=== PATIENT | male | born 1945 | race Caucasian/White ===

== ENCOUNTER 2018-12-05 01:07 | Inpatient (IN) | payer MEDICARE, OTHER ==
[~2018-12-05] VITALS: Ht 177.8 cm; Wt 122.5 kg
[~2018-12-05 01:07] MED LIST: ACET500 PO; ATOR10 PO; Aspir 8181 MG PO; CALCA500CH PO; CLOP75; CLOP75 PO; METO100ER PO; METO50; Nitrostat0.4 MG SL; OLME20-12. PO; TRIA50; TRIA80TC TOP
[2018-12-05 01:25] LABS: Calcium, Ionized (POC) 1.07 mmol/L (1.10-1.46); Chloride (POC) 105 mmol/L (98-108); Glucose (ISTAT POC) 186 mg/dL (70-99); Potassium (POC) 4.3 mmol/L (3.5-5.5); Sodium (POC) 139 mmol/L (135-148); Total CO2 (POC) 26 mmol/L (21-32)
[2018-12-05 01:47] LABS: BASOPHILS ABSOLUTE AUTO 0.05 K/mm3 (0.00-0.23); BASOPHILS PERCENT AUTO 1 % (0-2); EOSINOPHILS ABSOLUTE AUTO 0.12 K/mm3 (0.00-0.68); EOSINOPHILS PERCENT AUTO 1 % (0-6); Hematocrit 47.4 % (37.0-53.0); Hemoglobin 14.9 g/dL (13.5-17.5); IMMATURE GRAN ABSOLUTE AUTO 0.12 K/mm3 (0.00-0.10); IMMATURE GRAN PERCENT AUTO 1 % (0-1); LYMPHOCYTES ABSOLUTE AUTO 1.99 K/mm3 (0.84-5.20); LYMPHOCYTES PERCENT AUTO 19 % (21-46); MONOCYTES ABSOLUTE AUTO 0.75 K/mm3 (0.16-1.47); MONOCYTES PERCENT AUTO 7 % (4-13); Mean Corpuscular HGB 28.8 pg (26.0-34.0); Mean Corpuscular HGB Conc 31.4 g/dL (31.5-36.5); Mean Corpuscular Volume 92 fL (80-100); Mean Platelet Volume 10.4 fL (9.1-12.4); NEUTROPHILS ABSOLUTE AUTO 7.37 K/mm3 (1.96-9.15); NEUTROPHILS PERCENT AUTO 71 % (41-73); Platelet Count 278 K/mm3 (150-400); RDW Coefficient Variation 13.5 % (11.7-14.2); RDW Standard Deviation 46.1 fL (35.1-46.3); Red Blood Cell Count 5.17 M/mm3 (4.30-5.90)
[2018-12-05 01:59] LABS: Albumin, Blood 3.5 g/dL (3.4-5.0); Bilirubin, Total 0.3 mg/dL (0.1-1.0); Bun/Creatinine Ratio 16.7 (12.0-20.0); Creatinine, Blood 1.68 mg/dL (0.60-1.20); Globulin, Blood 3.6 g/dL (2.2-4.0); Magnesium, Blood 2.3 mg/dL (1.6-2.4); Potassium, Blood 4.4 mmol/L (3.5-5.5); Total Protein, Blood 7.1 g/dL (6.4-8.2); Troponin I 0.239 ng/mL (0.000-0.040)
[2018-12-05 11:20] LABS: Prothrombin Time Results 10.6 Sec (9.7-11.5)
--- NOTE | 2018-12-05 11:34 | NUR ---
ECHOCARDIOGRAM COMPLETED
[2018-12-05] MEDS ORDERED: METF500 PO (12:01)
[2018-12-05] MEDS ORDERED: ATORVASTATIN CA20 MG PO (12:02)
[2018-12-05] MEDS ORDERED: Hydrochloroth12.5 MG PO (12:02)
[2018-12-05] MEDS ORDERED: LOSA50 PO (12:38)
--- NOTE | 2018-12-05 14:51 | NUR ---
REPORT FROM MELVA SEBASTIAN. PATIENT WILL BE ADMITTED TO ICU 6 WHEN IT'S CLEAN
--- NOTE | 2018-12-05 15:31 | NUR ---
ADMITTED TO ICU 6. WALKED TO USE TOILET PRIOR TO BEING PLACED ON THE MONITOR. AMIODARONE GTT AT 1 AND HEPARIN AT 13 UNITS/KG/HR
--- NOTE | 2018-12-05 19:44 | NUR ---
PT RESTING IN BED. DENIES PAIN, N/V, SOB AND DIZZINESS. GOT UP WITH MINIMAL ASSIST TO BATHROOM WITHOUT ISSUE. NO REQUESTS AT THIS TIME. SEE ASSESSMENT.
[2018-12-06 05:09] LABS: BASOPHILS ABSOLUTE AUTO 0.03 K/mm3 (0.00-0.23); BASOPHILS PERCENT AUTO 0 % (0-2); EOSINOPHILS ABSOLUTE AUTO 0.12 K/mm3 (0.00-0.68); EOSINOPHILS PERCENT AUTO 2 % (0-6); Hematocrit 39.1 % (37.0-53.0); Hemoglobin 12.6 g/dL (13.5-17.5); IMMATURE GRAN ABSOLUTE AUTO 0.02 K/mm3 (0.00-0.10); IMMATURE GRAN PERCENT AUTO 0 % (0-1); LYMPHOCYTES ABSOLUTE AUTO 1.36 K/mm3 (0.84-5.20); LYMPHOCYTES PERCENT AUTO 17 % (21-46); MONOCYTES ABSOLUTE AUTO 0.78 K/mm3 (0.16-1.47); MONOCYTES PERCENT AUTO 10 % (4-13); Mean Corpuscular HGB Conc 32.2 g/dL (31.5-36.5); Mean Corpuscular Volume 90 fL (80-100); Mean Platelet Volume 10.4 fL (9.1-12.4); NEUTROPHILS ABSOLUTE AUTO 5.62 K/mm3 (1.96-9.15); NEUTROPHILS PERCENT AUTO 71 % (41-73); Platelet Count 192 K/mm3 (150-400); RDW Coefficient Variation 13.9 % (11.7-14.2); Red Blood Cell Count 4.34 M/mm3 (4.30-5.90); White Blood Cell Count 7.93 K/mm3 (4.00-11.30)
[2018-12-06 05:24] LABS: International Normalized Ratio 0.99; Prothrombin Time Results 10.5 Sec (9.7-11.5)
[2018-12-06 05:27] LABS: Albumin, Blood 3.2 g/dL (3.4-5.0); Anion Gap 5 mmol/L (6-16); Blood Urea Nitrogen 28 mg/dL (8-24); Bun/Creatinine Ratio 23.1 (12.0-20.0); CO2, Blood 26 mmol/L (21-32); Calcium, Blood 8.6 mg/dL (8.5-10.1); Chloride, Blood 108 mmol/L (98-108); Creatinine, Blood 1.21 mg/dL (0.60-1.20); Glomerular Filtration Rate >60 (60-); Glucose, Blood 143 mg/dL (70-99); Phosphorus, Blood 3.7 mg/dL (2.5-4.9); Potassium, Blood 4.1 mmol/L (3.5-5.5); Sodium, Blood 139 mmol/L (136-145)
[2018-12-06 05:51] LABS: Troponin I 0.717 ng/mL (0.000-0.040)
--- NOTE | 2018-12-06 06:15 | NUR ---
PT RESTING IN BED. NO COMPLAINTS OF PAIN, N/V, OR SOB. WORE HOME CPAP MOST OF THE NIGHT FOR SLEEP. NO SIGN OF DISTRESS. 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
--- NOTE | 2018-12-06 07:26 | NUR ---
ASSUMED CARE REPORT FROM MELVA SHARMA. ASLEEP WITH CPAP MASK ON. AMIODARONE GTT AT 0.5 MG/MIN. HEPARIN GTT AT 16 UNITS/KG/HR. NPO SINCE MIDNIGHT. 4 H YOUTH DEVELOPMENT SPECIALIST THIS MORNING
--- NOTE | 2018-12-06 07:51 | NUR ---
PATIENT WAKE, PERFORMING AM CARE AT SINK
--- NOTE | 2018-12-06 08:45 | NUR ---
CONSULTED DR. SWARTZ RE: TRANSITION FROM AMIODARONE GTT PRIOR TO PROCEDURE. ORDER REC'D FOR PO AMIODARONE BID.
--- NOTE | 2018-12-06 10:36 | NUR ---
ALMITA FRYE, AND JUNE CAME TO GET PATIENT FOR REAL ESTATE RECRUITER SHORTLY AFTER 0900.
--- NOTE | 2018-12-06 11:24 | NUR ---
BACK FROM MANAGER INTENSIVE CARE UNIT PT BACK FROM MANAGER INTENSIVE CARE UNIT AT 1120. TR BAND IN PLACE TO R WRIST WITH 13ML OF AIR. DISTAL HAND WARM TO TOUCH, PULSE STRONG. PT DENIES ANY NUMBNESS OR TINGLING TO HAND. VITAL SIGNS STABLE. PT DENIES ANY CHEST PAIN. IV GTT'S DISCONTINUED PER MANAGER INTENSIVE CARE UNIT STAFF. PT INSTRUCTED TO NOT USE RIGHT HAND/ARM AT THIS TIME - VERBALIZES UNDERSTANDING. WILL CONTINUE TO MONITOR PT.
[2018-12-06 12:34] LABS: Albumin, Blood 3.3 g/dL (3.4-5.0); Anion Gap 6 mmol/L (6-16); Blood Urea Nitrogen 22 mg/dL (8-24); Bun/Creatinine Ratio 19.5 (12.0-20.0); CO2, Blood 26 mmol/L (21-32); Calcium, Blood 8.6 mg/dL (8.5-10.1); Chloride, Blood 108 mmol/L (98-108); Creatinine, Blood 1.13 mg/dL (0.60-1.20); Glomerular Filtration Rate >60 (60-); Glucose, Blood 113 mg/dL (70-99); Phosphorus, Blood 3.1 mg/dL (2.5-4.9); Sodium, Blood 140 mmol/L (136-145)
--- NOTE | 2018-12-06 12:55 | NUR ---
MD VISIT DR. CARMEN IN TO TALK TO PATIENT ABOUT DEFIB IMPLANT
--- NOTE | 2018-12-06 14:23 | NUR ---
TR BAND REMOVED AND CLEAR OCCLUSIVE DRESSING APPLIED TO RIGHT RADIAL SITE. ARM BOARD IN PLACE WITH INSTRUCTIONS NOT TO USE AND TO APPLY PRESSURE IF IT BLEEDS
--- NOTE | 2018-12-06 17:05 | NUR ---
Per pt request, I met with both he and his at bedside. is very worried and tearful. Both responded well to assurance of excellent care ant attention. They were appreciative of prayer and spiritual direction. Pt having cardiac intervention this afternoon. I will remain available.
--- NOTE | 2018-12-06 19:50 | NUR ---
ASSUMED CARE RECEIEVED REPORT FROM MELVA ROMAN. PT IS LYING IN BED ALERT AND ORIENTED X 4. DENIES ANY CHEST TIGHTNESS, PAIN, SOB, OR GENERAL DISCOMFORT AT THIS TIME. PT IS SALINE LOCKED IN BOTH IV'S. VITALS ARE STABLE; PT IS HAVING FREQUENT PAC'S AND OCCASIONAL PVC'S, BUT IS ASYMPTOMATIC AT THIS MOMENT. AT BEDSIDE. BED IS LOW AND LOCKED; CALL LIGHT WITHIN REACH.
--- NOTE | 2018-12-06 19:55 | NUR ---
RIGHT RADIAL SITE IS CDI; NO SIGN OF HEMATOMA FORMATION, SITE IS SOFT, AND NONTENDER.
--- NOTE | 2018-12-07 05:52 | NUR ---
SHIFT SUMMARY PT IS ALERT AND ORIENTED X 4, PLEASANT MAN WITH NOT MUCH COMPLAINTS. HAS DENIED CP, SOB, NAUSEA AND ANY GENERAL DISCOMFORT. HE HAS SLEPT THE MAJORITY OF NIGHT. REQUIRING CPAP WHEN ASLEEP. RIGHT RADIAL SITE HAS REMAINED CDI, NO PAIN, GOOD PERFUSION (CAP REFILL < 3'S, STRONG RADIAL PULSE, WARMTH, ETC...), AND NO SIGN OF HEMATOMA FORMATION. BP HAS BEEN ELEVATED (SEE VS). PT IS HAVING FREQUENT PAC'S AND OCCASIONAL PVC'S BUT IS IN A SINUS RHYTHM WITH A CONTROLLED RATE. BED IS LOW AND LOCKED. CALL LIGHT HAS BEEN IN REACH ALL NIGHT.
--- NOTE | 2018-12-07 08:03 | NUR ---
Recieved report from Jimena FRYE. Patient sleeping when entering room and allowed him top sleep until family came in and awakened him. He is on Ra and sats in the upper 90%'s. He is able to communicate his needs. He is awaiting to go for AICD placement this am. Family at bedside. His right TR band site has small hematoma resolving and clear op site dressing with no signs of bleeding or oozing. He is hypertensive 160 sytolic, HR 70's. He is currently independent in room.
--- NOTE | 2018-12-07 10:27 | NUR ---
Patient off to procedure for AICD. and awaiting return.
--- NOTE | 2018-12-07 12:26 | NUR ---
Patient arrived back to room from heart center with left shoulder pressure dressing. Nurse stated small bleeding area toward arm pit and stated to keep an eye on it. Patient denies any need for pain intervention. TR band site C/D/I. RA. Patient tolerating fluids.
--- NOTE | 2018-12-07 14:38 | NUR ---
Patient up to bathroom with assist. Placed sling on left arm. No oozing or bvleeding visible through pressure dressing. VSS. Tolerated late lunch and liquids.
--- NOTE | 2018-12-07 18:00 | NUR ---
Patient doing well in bed. Pressure dressing looks C/D/I and no signs of bleeding or oozing. Started second dose of Cefzolin and redressin RAC iv. he remains slightly hypertensive after getting back to bed from bathroom.Family has gone home. He tolerated dinner well.
--- NOTE | 2018-12-07 19:15 | NUR ---
ASSUMED CARE RECEIVED REPORT FROM MELVA THOMAS. PT IS ALERT AND ORIENTED X 4, LYING IN BED WITH FAMILY PRESENT. HE STATES HE IS SORE AT THE PACEMAKER SITE, AND IN GENERAL DISCOMFORT, BUT STATES HE IS FINE. HE HAS THE SLING AROUND HIS LEFT ARM, AND A HANDBOARD ON HIS RIGHT HAND. PT IS IN NORMAL SINUS RHYTHM, WITH PVC'S AND PAC'S. BP AND HR STABLE. BED IS LOW AND LOCKED. CALL LIGHT WITHIN REACH.
--- NOTE | 2018-12-08 06:22 | NUR ---
SHIFT SUMMARY PT SLEPT THROUGH MAJORITY OF NIGHT, WITH CPAP ON. HE HAS DENIED CP/SOB/NAUSEA. STATES HE HAS TIGHTNESS/SORNESS IN CHEST AREA, BUT BELIEVES IT IS R/T CONGESTION AND RECENT CATH PROCEDURE. ALERT AND ORIENTED X 4. PACEMAKER SITE ONLY HAD MINIMAL SWELLING, AND IS CDI. UNDERSTAND PROPER MOBILITY WITH LEFT ARM, AND RIGHT WRIST. STABLE VITALS ALL NIGHT. THROUGHOUT NIGHT PT HAS BEEN IN SINUS RHYTHM, WITH OCCASIONAL PACED ATRIAL BEATS, ALL SENSED INTRINSIC VENTRICULAR BEATS, OCCASIONAL PVC'S, AND FREQUENT PAC'S. BED HAS BEEN LOW AND LOCKED, AND CALL LIGHT WITHIN REACH ALL NIGHT.
--- NOTE | 2018-12-08 08:15 | NUR ---
ASSUMED CARE PT. ALERT AND ORIENTED THIS AM. DR. CARMEN IN TO SEE PT THIS AM. PRESSURE DRESSING REMOVED BY DR. CARMEN AND SITE EVALUATED. PLANS FOR PT TO BE DISCHARGED TODAY. PT. DENIES ANY CHEST PAIN OR PRESSURE THIS AM. REPORTS SOME ACHE TO LEFT CHEST WALL FROM IMPLANTED AICD. PT. VSS THIS AM. EDUCATED ON SITE CARE TO WRIST AND POST AICD. PT. DAUGHTER AT BEDSIDE. AWAITING DR. SOTO. PT INDEPENDENT IN ROOM, SITTING UP ON BEDSIDE EATING BREAKFAST.
--- NOTE | 2018-12-08 08:34 | NUR ---
EDUCATION PT, PT , AND DAUGHTER EDUCATED ON ICD, RADIAL SITE, AND WERE REQUESTING INFO ON CARDIAC DIET. CALL TO PRESS OPERATOR [employer] FOR ASSISTANCE WITH EDUCATION ON CARDIAC DIET.
[2018-12-08] MEDS ORDERED: ACET500 PO (09:44)
[2018-12-08] MEDS ORDERED: Amiodarone HCl200 MG PO (09:44)
[2018-12-08] MEDS ORDERED: TUMS500 MG PO (09:45)
--- NOTE | 2018-12-08 10:38 | NUR ---
PT DISCHARGED TO HOME INSTRUCTIONS REVIEWED IN DETAIL WITH PT, , AND DAUGHTER. PT. VSS UPON DISCHARGE. SLING IN PLACE UPON DISCHARGE AND SITE REMAINS UNCHANGED. FOLLOW UP SCHEDULED. NO FURTHER QUESTIONS BY FAMILY. MEDICAITONS AND CHANGES DISCUSSED AND PRESCRIPTION CALLED INTO [facility]. PT TAKEN VIA WHEEL CHAIR TO EXIT, WITH ALL BELONGINGS.
== END 2018-12-08 10:42 | disposition home or self-care (01) | DRG 224 ==
LOC: ER 01:07 → ERHOLD 01:08 → ICUE 04:53 → ERHOLD 04:53 → ICUE 15:12
PROVIDERS: Emergency Medicine; Internal Medicine Cardiovascular Disease; Internal Medicine Gastroenterology; ADMIT Internal Medicine
PROC: 5A2204Z Restoration of Cardiac Rhythm, Single (ICD-10-PCS; 2018-12-05)
PROC: B2111ZZ Fluoroscopy of Multiple Coronary Arteries using Low Osmolar Contrast (ICD-10-PCS; 2018-12-06)
PROC: 4A023N7 Measurement of Cardiac Sampling and Pressure, Left Heart, Percutaneous Approach (ICD-10-PCS; 2018-12-06)
PROC: 0JH609Z Insertion of Cardiac Resynchronization Defibrillator Pulse Generator into Chest Subcutaneous Tissue and Fascia, Open Approach (ICD-10-PCS; principal; 2018-12-07)
PROC: 02HK3KZ Insertion of Defibrillator Lead into Right Ventricle, Percutaneous Approach (ICD-10-PCS; 2018-12-07)
PROC: 02H63KZ Insertion of Defibrillator Lead into Right Atrium, Percutaneous Approach (ICD-10-PCS; 2018-12-07)
DX: I47.2 Ventricular tachycardia (principal); I21.4 Non-ST elevation (NSTEMI) myocardial infarction; N17.9 Acute kidney failure, unspecified; Z79.82 Long term (current) use of aspirin; I25.10 Atherosclerotic heart disease of native coronary artery without angina pectoris; I48.0 Paroxysmal atrial fibrillation; K21.9 Gastro-esophageal reflux disease without esophagitis; E78.5 Hyperlipidemia, unspecified; N40.0 Benign prostatic hyperplasia without lower urinary tract symptoms; Z87.891 Personal history of nicotine dependence; Z95.5 Presence of coronary angioplasty implant and graft; G47.33 Obstructive sleep apnea (adult) (pediatric); I08.1 Rheumatic disorders of both mitral and tricuspid valves; I27.20 Pulmonary hypertension, unspecified; I25.5 Ischemic cardiomyopathy; I10 Essential (primary) hypertension
CPT/HCPCS: 33249; 36415; 71045; 71046; 76937; 80047; 80053; 80069; 83735; 83880; 84484; 85014; 85025; 85347; 85610; 85730; 92960; 93005; 93010; 93306; 93458; 93571; 96361-59; 96374-59; 96375-59; 96376-59; 99152; 99153; 99285-25; C1721; C1769; C1887; C1894; C1895; C1898; J0153; J0282; J0690; J1160; J1644; J1650; J2250; J2405; J3010; J7030; J7040; J7060; J7120; Q9967

== ENCOUNTER 2019-12-27 08:46 | Day surgery (SDC) | payer MEDICARE, OTHER ==
[~2019-12-27] VITALS: Ht 177.8 cm; Wt 133.7 kg
[~2019-12-27 08:46] MED LIST changes: +ATORVASTATIN CA20 MG PO; +Amiodarone HCl200 MG PO; +ELIQUIS5 MG PO; +ENTRESTO 49 MG1 EACH PO; +Hydrochloroth12.5 MG PO; +LOSA50 PO; +METF500 PO; +SPIR25 PO; +TUMS500 MG PO
== END 2019-12-27 10:19 | disposition home or self-care (01) ==
LOC: ORSCSDS 08:46
PROVIDERS: Ophthalmology
PROC: 08RJ3JZ Replacement of Right Lens with Synthetic Substitute, Percutaneous Approach (ICD-10-PCS; principal; 2019-12-27 09:45)
DX: H25.11 Age-related nuclear cataract, right eye (principal); I10 Essential (primary) hypertension; I48.91 Unspecified atrial fibrillation; Z79.01 Long term (current) use of anticoagulants; E11.9 Type 2 diabetes mellitus without complications; I25.10 Atherosclerotic heart disease of native coronary artery without angina pectoris; E78.5 Hyperlipidemia, unspecified; I25.2 Old myocardial infarction; E66.01 Morbid (severe) obesity due to excess calories; Z68.41 Body mass index [BMI] 40.0-44.9, adult; Z79.84 Long term (current) use of oral hypoglycemic drugs; Z79.899 Other long term (current) drug therapy
CPT/HCPCS: 82947; J2001; J2250; J3010; J3301; J7040; V2632

== ENCOUNTER 2020-01-17 08:08 | Day surgery (SDC) | payer MEDICARE, OTHER ==
[~2020-01-17] VITALS: Ht 177.8 cm; Wt 131.7 kg
== END 2020-01-17 10:20 | disposition home or self-care (01) ==
LOC: ORSCSDS 08:08
PROVIDERS: Ophthalmology
PROC: 08RK3JZ Replacement of Left Lens with Synthetic Substitute, Percutaneous Approach (ICD-10-PCS; principal; 2020-01-17 09:15)
DX: H25.12 Age-related nuclear cataract, left eye (principal); H52.4 Presbyopia; H52.31 Anisometropia; I10 Essential (primary) hypertension; E11.36 Type 2 diabetes mellitus with diabetic cataract; I25.2 Old myocardial infarction; Z79.01 Long term (current) use of anticoagulants; Z79.84 Long term (current) use of oral hypoglycemic drugs; Z79.899 Other long term (current) drug therapy; Z87.891 Personal history of nicotine dependence
CPT/HCPCS: 82947; J2250; J3010; J3301; J7040; V2632

== ENCOUNTER 2020-05-30 13:39 | Day surgery (SDC) | payer MEDICARE, OTHER ==
[~2020-05-30] VITALS: Ht 177.8 cm; Wt 129.4 kg
[~2020-05-30 13:39] MED LIST changes: +ACET500; +ATOR20 PO; +KAPSPARGO SPRI100 MG PO; +TRIA15CR3
== END 2020-05-30 15:17 | disposition home or self-care (01) ==
LOC: ORSCSDS 13:39
PROVIDERS: Internal Medicine Gastroenterology
PROC: 0DBM8ZX Excision of Descending Colon, Via Natural or Artificial Opening Endoscopic, Diagnostic (ICD-10-PCS; principal; 2020-05-30 14:45)
DX: Z12.11 Encounter for screening for malignant neoplasm of colon (principal); Z86.010 Personal history of colon polyps; D12.4 Benign neoplasm of descending colon; K57.30 Diverticulosis of large intestine without perforation or abscess without bleeding; K64.8 Other hemorrhoids; G47.33 Obstructive sleep apnea (adult) (pediatric); E11.9 Type 2 diabetes mellitus without complications; E66.01 Morbid (severe) obesity due to excess calories; Z68.41 Body mass index [BMI] 40.0-44.9, adult; I10 Essential (primary) hypertension; I25.10 Atherosclerotic heart disease of native coronary artery without angina pectoris; Z79.899 Other long term (current) drug therapy; Z79.84 Long term (current) use of oral hypoglycemic drugs; Z79.01 Long term (current) use of anticoagulants
CPT/HCPCS: 82947; 88305; J2704; J7120

== ENCOUNTER 2023-01-31 17:32 | Emergency (ER) | payer MEDICARE, OTHER ==
[~2023-01-31] VITALS: Ht 175.3 cm; Wt 117.9 kg
[2023-01-31 18:21] LABS: BASOPHILS ABSOLUTE AUTO 0.03 K/mm3 (0.00-0.23); BASOPHILS PERCENT AUTO 0 % (0-2); EOSINOPHILS ABSOLUTE AUTO 0.01 K/mm3 (0.00-0.68); EOSINOPHILS PERCENT AUTO 0 % (0-6); Hematocrit 37.9 % (37.0-53.0); Hemoglobin 12.2 g/dL (13.5-17.5); IMMATURE GRAN ABSOLUTE AUTO 0.06 K/mm3 (0.00-0.10); IMMATURE GRAN PERCENT AUTO 1 % (0-1); LYMPHOCYTES ABSOLUTE AUTO 0.64 K/mm3 (0.84-5.20); LYMPHOCYTES PERCENT AUTO 6 % (21-46); MONOCYTES ABSOLUTE AUTO 0.65 K/mm3 (0.16-1.47); MONOCYTES PERCENT AUTO 6 % (4-13); Mean Corpuscular HGB 31.1 pg (26.0-34.0); Mean Corpuscular HGB Conc 32.2 g/dL (31.5-36.5); Mean Corpuscular Volume 97 fL (80-100); NEUTROPHILS ABSOLUTE AUTO 10.32 K/mm3 (1.96-9.15); NEUTROPHILS PERCENT AUTO 88 % (41-73); Platelet Count 132 K/mm3 (150-400); RDW Coefficient Variation 16.2 % (11.7-14.2); RDW Standard Deviation 57.5 fL (35.1-46.3); Red Blood Cell Count 3.92 M/mm3 (4.30-5.90); White Blood Cell Count 11.71 K/mm3 (4.00-11.30)
[2023-01-31 18:55] LABS: Albumin, Blood 3.1 g/dL (3.4-5.0); Albumin/Globulin Ratio 0.9 (0.8-1.8); Bilirubin, Total 1.7 mg/dL (0.1-1.0); Calcium, Blood 8.8 mg/dL (8.5-10.1); Creatinine, Blood 1.17 mg/dL (0.60-1.20); Globulin, Blood 3.5 g/dL (2.2-4.0); Potassium, Blood 4.5 mmol/L (3.5-5.5); Total Protein, Blood 6.6 g/dL (6.4-8.2)
[2023-01-31] MEDS ORDERED: JARDIANCE10 MG PO (20:06)
[2023-01-31 21:30] VITALS: BP 126/61
[2023-01-31] MEDS ORDERED: PRED20 PO ×2 (21:30→21:43)
[2023-01-31] MEDS ORDERED: CEPH500 PO ×2 (21:30→21:43)
== END 2023-01-31 21:48 | disposition home or self-care (01) ==
LOC: ER 17:32
PROVIDERS: Physician Assistant
DX: J20.9 Acute bronchitis, unspecified (principal); J44.0 Chronic obstructive pulmonary disease with (acute) lower respiratory infection; Z87.891 Personal history of nicotine dependence; Z20.822 Contact with and (suspected) exposure to COVID-19
CPT/HCPCS: 71046; 80053; 83690; 83880; 84484; 85025; 93005; 93010; 94640; 94664; 96374; 99284-25; A9270; J2930

== ENCOUNTER 2023-04-27 17:11 | Inpatient (IN) | payer OTHER ==
[~2023-04-27] VITALS: Ht 177.8 cm; Wt 122.9 kg
[~2023-04-27 17:11] MED LIST changes: +CEPH500 PO; +JARDIANCE10 MG PO; +PRED20 PO; -TRIA15CR3; +TRIA15CR3 TOP
[2023-04-27 17:41] VITALS: BP 127/67
[2023-04-27] MEDS ORDERED: FLU VACC QS2023-24(6MOS UP)/PF 60 MCG/0.5 ML SYRINGE IM ONE (17:50)
[2023-04-27] MEDS ORDERED: NS 1,000 ML IV SCH (18:05)
[2023-04-27] MEDS ORDERED: METO100ER PO (18:55)
--- NOTE | 2023-04-27 19:25 | NUR ---
DIRECT PT SHOWED UP IN RM, VSS, IN GOOD SPIRITS, AT BEDSIDE. IV STARTED TO LEFT AC, RENAL/ABD ULTRASOUND DONE, NEW ORDERS FOR LABS PLACE IN COMPUTER.
[2023-04-27] MEDS ORDERED: FUROSEMIDE20 MG PO (19:35)
[2023-04-27 19:41] VITALS: BP 108/60
[2023-04-27] MEDS ORDERED: Sacubitril/Valsartan 49 MG/51 MG Tab PO SCH (21:00)
[2023-04-27] MEDS ORDERED: Apixaban 5 MG Tab PO SCH (21:00)
[2023-04-27 21:12] LABS: Source, Urine Clean Catch
[2023-04-27 21:21] LABS: Appearance, Urine Clear (Clear); Bilirubin, Urine Neg (Neg); Blood, Urine Neg (Neg); Color, Urine Yellow (P-Yellow); Glucose Qualitative, Urine 3+ (Neg); Ketones, Urine Neg (Neg); Leukocyte Esterase, Urine Neg (Neg); Nitrite, Urine Neg (Neg); Protein, Urine Neg (Neg); Urobilinogen, Urine NORM (Normal)
[2023-04-27 21:38] LABS: Protein, Urine Random 12.1 mg/dL (0.0-11.9)
--- NOTE | 2023-04-28 05:25 | NUR ---
SHIFT SUMMARY PATIENT IS ALERT AND ORIENTED. PATIENT HAS HAD NO ACUTE EVENTS THIS SHIFT. VITAL SIGNS REVIEWED. PATIENT IS A DIRECT ADMIT. FAMILY HAS BEEN WITH HIM IN BEGINNING OF SHIFT. PATIENT HAS BEEN IND IN ROOM THIS SHIFT. PATIENT HAS BEEN EXPERIENCING INTERMITTENT DIARRHEA AND IS IN [facility]OLATION [facility]. NO BOWL MOVEMENT THIS SHIFT. URINE SAMPLE WAS OBTAINED. PATIENT HAS HAD NO COMPLAINTS OF PAIN, NAUSEA, SOB OR VOMITTING THIS SHIFT. IV FLUIDS INFUSED ORDERED. BED IN LOCKED AND LOWEST POSITION. CALL LIGHT IN PLACE. WILL MONITOR UNTIL SHIFT CHANGE.
[2023-04-28 06:22] LABS: BASOPHILS ABSOLUTE AUTO 0.03 K/mm3 (0.00-0.23); BASOPHILS PERCENT AUTO 0 % (0-2); EOSINOPHILS ABSOLUTE AUTO 0.09 K/mm3 (0.00-0.68); EOSINOPHILS PERCENT AUTO 1 % (0-6); Hematocrit 32.2 % (37.0-53.0); Hemoglobin 10.8 g/dL (13.5-17.5); IMMATURE GRAN ABSOLUTE AUTO 0.01 K/mm3 (0.00-0.10); IMMATURE GRAN PERCENT AUTO 0 % (0-1); LYMPHOCYTES ABSOLUTE AUTO 1.14 K/mm3 (0.84-5.20); LYMPHOCYTES PERCENT AUTO 16 % (21-46); MONOCYTES ABSOLUTE AUTO 1.03 K/mm3 (0.16-1.47); MONOCYTES PERCENT AUTO 14 % (4-13); Mean Corpuscular HGB 31.1 pg (26.0-34.0); Mean Corpuscular HGB Conc 33.5 g/dL (31.5-36.5); Mean Corpuscular Volume 93 fL (80-100); Mean Platelet Volume 10.3 fL (9.1-12.4); NEUTROPHILS ABSOLUTE AUTO 4.98 K/mm3 (1.96-9.15); NEUTROPHILS PERCENT AUTO 69 % (41-73); Platelet Count 153 K/mm3 (150-400); RDW Coefficient Variation 17.9 % (11.7-14.2); RDW Standard Deviation 60.8 fL (35.1-46.3); Red Blood Cell Count 3.47 M/mm3 (4.30-5.90); White Blood Cell Count 7.28 K/mm3 (4.00-11.30)
[2023-04-28 07:09] LABS: Albumin, Blood 2.6 g/dL (3.4-5.0); Anion Gap 6 mmol/L (6-16); Blood Urea Nitrogen 54 mg/dL (8-24); Bun/Creatinine Ratio 20.6 (12.0-20.0); CO2, Blood 23 mmol/L (21-32); Calcium, Blood 8.6 mg/dL (8.5-10.1); Chloride, Blood 111 mmol/L (98-108); Creatinine, Blood 2.62 mg/dL (0.60-1.20); Glomerular Filtration Rate 25 (60-); Glucose, Blood 91 mg/dL (70-99); Phosphorus, Blood 3.3 mg/dL (2.5-4.9); Potassium, Blood 4.9 mmol/L (3.5-5.5); Sodium, Blood 140 mmol/L (136-145)
[2023-04-28 07:41] VITALS: BP 85/52
[2023-04-28] MEDS ORDERED: Amiodarone HCl 200 MG Tab PO SCH (09:00)
[2023-04-28] MEDS ORDERED: Metoprolol Succinate 50 MG TABCR PO SCH (09:00)
[2023-04-28] MEDS ORDERED: Empagliflozin 10 MG TAB PO SCH (09:00)
[2023-04-28] MEDS ORDERED: Atorvastatin 10 MG Tab PO SCH (09:00)
[2023-04-28 10:05] VITALS: BP 93/48
[2023-04-28 10:06] LABS: Albumin, Blood 2.6 g/dL (3.4-5.0); Albumin/Globulin Ratio 0.9 (0.8-1.8); Bilirubin, Direct 1.4 mg/dL (0.0-0.3); Bilirubin, Indirect 1.4 mg/dL (0.1-0.7); Bilirubin, Total 2.8 mg/dL (0.1-1.0); Total Protein, Blood 5.6 g/dL (6.4-8.2)
--- NOTE | 2023-04-28 14:26 | NUR ---
"Spiritual Care Visit | Family request Pt. is resting but responds when I enter the room. Pt. is pleasant and is known to this public information officer from the community. Facilitate a life review and ask guided questions to assertane Pts. spiritual processing of his health journey. Pt. displays evidence of being aware and engaged. Explored sanam and Pts. spiritual support. Demonstrated care and concern by sharing words of hope and inspiration. Pts. and daughter arrived. Pt. verbalized gratitude for the spiritual care visit, and welcomed this public information officer to return."
[2023-04-28 17:11] VITALS: BP 113/70
[2023-04-28] MEDS ORDERED: NS 1,000 ML IV SCH (17:45)
[2023-04-28] MEDS ORDERED: Ondansetron HCl 2 MG / ML 2ML Vial IV PRN (17:50)
--- NOTE | 2023-04-28 19:44 | NUR ---
SHIFT SUMMARY PT UP TO BATHROOM WITH 1 PERSON ASSIST TODAY SEVERAL TIMES BUT DIDN'T HAVE A BM. FAMILY AT BEDSIDE THROUGH THE DAY. HAD AN EPISODE OF NAUSEA THIS EVENING AND OBTAINED ORDERS FOR ZOFRAN WHICH PT REPORTED BEING EFFECTIVE. DOZING THIS AFTERNOON.
[2023-04-28 19:48] VITALS: BP 124/91
[2023-04-28] MEDS ORDERED: Cephalexin Monohydrate 500 MG Cap PO SCH (22:00)
--- NOTE | 2023-04-29 04:36 | NUR ---
Pt a&o x4. Continues to c/o right facial redness and swelling, states has improved slightly. Denies nausea and able to tolerate po meds. No bm this shift, awaiting stool specimen.
[2023-04-29 05:24] VITALS: BP 94/44
[2023-04-29 06:47] LABS: Albumin, Blood 2.4 g/dL (3.4-5.0); Anion Gap 5 mmol/L (6-16); Blood Urea Nitrogen 56 mg/dL (8-24); CO2, Blood 21 mmol/L (21-32); Chloride, Blood 110 mmol/L (98-108); Creatinine, Blood 2.95 mg/dL (0.60-1.20); Glomerular Filtration Rate 21 (60-); Glucose, Blood 98 mg/dL (70-99); Phosphorus, Blood 3.4 mg/dL (2.5-4.9); Potassium, Blood 4.8 mmol/L (3.5-5.5); Sodium, Blood 136 mmol/L (136-145)
[2023-04-29 06:52] LABS: BASOPHILS ABSOLUTE AUTO 0.02 K/mm3 (0.00-0.23); BASOPHILS PERCENT AUTO 0 % (0-2); EOSINOPHILS ABSOLUTE AUTO 0.02 K/mm3 (0.00-0.68); EOSINOPHILS PERCENT AUTO 0 % (0-6); Hematocrit 30.1 % (37.0-53.0); Hemoglobin 10.1 g/dL (13.5-17.5); IMMATURE GRAN ABSOLUTE AUTO 0.04 K/mm3 (0.00-0.10); IMMATURE GRAN PERCENT AUTO 0 % (0-1); LYMPHOCYTES ABSOLUTE AUTO 1.22 K/mm3 (0.84-5.20); LYMPHOCYTES PERCENT AUTO 12 % (21-46); MONOCYTES ABSOLUTE AUTO 1.35 K/mm3 (0.16-1.47); MONOCYTES PERCENT AUTO 13 % (4-13); Mean Corpuscular HGB 31.6 pg (26.0-34.0); Mean Corpuscular HGB Conc 33.6 g/dL (31.5-36.5); Mean Corpuscular Volume 94 fL (80-100); Mean Platelet Volume 10.9 fL (9.1-12.4); NEUTROPHILS ABSOLUTE AUTO 7.93 K/mm3 (1.96-9.15); NEUTROPHILS PERCENT AUTO 75 % (41-73); Platelet Count 152 K/mm3 (150-400); RDW Coefficient Variation 17.7 % (11.7-14.2); RDW Standard Deviation 61.2 fL (35.1-46.3); White Blood Cell Count 10.58 K/mm3 (4.00-11.30)
[2023-04-29 07:06] LABS: Albumin, Blood 2.4 g/dL (3.4-5.0); Albumin/Globulin Ratio 0.9 (0.8-1.8); Bilirubin, Direct 1.6 mg/dL (0.0-0.3); Bilirubin, Indirect 1.2 mg/dL (0.1-0.7); Bilirubin, Total 2.8 mg/dL (0.1-1.0); Globulin, Blood 2.8 g/dL (2.2-4.0); Total Protein, Blood 5.2 g/dL (6.4-8.2)
[2023-04-29 08:40] VITALS: BP 92/48
[2023-04-29] MEDS ORDERED: Albumin (Human) 25gm/100ml 100 ML IV ONE (09:15)
--- NOTE | 2023-04-29 11:51 | NUR ---
Pt. is awake and sitting in a recliner. Many family members are present. Pt. is pleasant and welcomes my visit. Engage and listen as the family is telling stories and rapport is established. Pt. verbalized that his kidney numbers have taken a turn for the worse, but Pt. displayed a demeanor of hope. Prayed with the Pt. and the family who are at bedside. Family verbalized gratitude for the spiritual care visit.
[2023-04-29] MEDS ORDERED: Midodrine 5 MG Tab PO SCH (13:00)
[2023-04-29 14:17] LABS: Adenovirus F 40/41 Not Detected (NOT DETECT); Astrovirus Not Detected (NOT DETECT); Campylobacter Sp Not Detected (NOT DETECT); Cryptosporidium Not Detected (NOT DETECT); Cyclospora Cayetanensis Not Detected (NOT DETECT); E. Coli O157 Not Detected (NOT DETECT); Entamoeba Histolytica Not Detected (NOT DETECT); Enteroaggregative E. coli-EAEC Not Detected (NOT DETECT); Enteropathogenic E. coli-EPEC Not Detected (NOT DETECT); Enterotoxigenic E. coli-ETEC Not Detected (NOT DETECT); Giardia Lamblia Not Detected (NOT DETECT); Norovirus GI/GII Not Detected (NOT DETECT); Plesiomonas Shigelloides Not Detected (NOT DETECT); Rotavirus A Not Detected (NOT DETECT); Salmonella Sp Not Detected (NOT DETECT); Sapovirus Not Detected (NOT DETECT); Shiga Toxin-prod E. coli-STEC Not Detected (NOT DETECT); Shigella/Enteroin E. coli-EIEC Not Detected (NOT DETECT); Vibrio Cholerae Not Detected (NOT DETECT); Vibrio Sp Not Detected (NOT DETECT); Yersinia Enterocolitica Not Detected (NOT DETECT)
[2023-04-29 18:27] VITALS: BP 110/58
--- NOTE | 2023-04-29 19:12 | NUR ---
SHIFT SUMMARY PT UP IN CHAIR MOST OF THE DAY. FAMILY AT BEDSIDE. 1 PERSON ASSIST TO THE BATHROOM. HAD A BM AND SENT TO LAB WITH NEGATIVE RESULTS. APPEARS MORE SHORT OF BREATH THIS EVENING BUT HE DENIES. R CHEEK REMAINS RED, WARM AND FIRM IN AREAS AND APPEARS TO HAVE MOVED TO L CHEEK WELL.
[2023-04-29 19:21] VITALS: BP 106/54
[2023-04-29] MEDS ORDERED: Lactobacil 2-S.Thermo-Bifido 1 1 Cap PO SCH (21:00)
[2023-04-29] MEDS ORDERED: CeFAZolin Sodium 1,000 MG in NS 50 ML IV SCH (21:00)
--- NOTE | 2023-04-30 03:50 | NUR ---
VOLTAGE INSPECTOR SUMMARY PT A&O X 4, PLEASANT. INDEPENDANT IN ROOM WITH 4WW. PT HAS BLE EDEMA +2. BP STABLE SO FAR THIS SHIFT. PT URINATED IN EVENING. POST VOID BLADDER SCAN AT 2100 WAS 183 CC. PT REPORTS NO ABDOMINAL DISCOMFORT. PT SLEPT WELL THROUGH THE NIGHT. NO ACUTE CHANGES THIS SHIFT. 04/30/23 AMIE LONG RN
[2023-04-30 04:13] VITALS: BP 95/49
[2023-04-30] MEDS ORDERED: Acetaminophen 325 MG TABLET PO PRN (05:40)
[2023-04-30 06:01] LABS: BASOPHILS ABSOLUTE AUTO 0.04 K/mm3 (0.00-0.23); BASOPHILS PERCENT AUTO 0 % (0-2); EOSINOPHILS ABSOLUTE AUTO 0.16 K/mm3 (0.00-0.68); EOSINOPHILS PERCENT AUTO 2 % (0-6); Hematocrit 31.3 % (37.0-53.0); Hemoglobin 10.5 g/dL (13.5-17.5); IMMATURE GRAN ABSOLUTE AUTO 0.04 K/mm3 (0.00-0.10); IMMATURE GRAN PERCENT AUTO 0 % (0-1); LYMPHOCYTES ABSOLUTE AUTO 1.38 K/mm3 (0.84-5.20); LYMPHOCYTES PERCENT AUTO 14 % (21-46); MONOCYTES ABSOLUTE AUTO 1.26 K/mm3 (0.16-1.47); MONOCYTES PERCENT AUTO 13 % (4-13); Mean Corpuscular HGB 31.5 pg (26.0-34.0); Mean Corpuscular HGB Conc 33.5 g/dL (31.5-36.5); Mean Corpuscular Volume 94 fL (80-100); Mean Platelet Volume 10.7 fL (9.1-12.4); NEUTROPHILS ABSOLUTE AUTO 7.19 K/mm3 (1.96-9.15); NEUTROPHILS PERCENT AUTO 71 % (41-73); Platelet Count 167 K/mm3 (150-400); RDW Standard Deviation 62.2 fL (35.1-46.3); Red Blood Cell Count 3.33 M/mm3 (4.30-5.90); White Blood Cell Count 10.07 K/mm3 (4.00-11.30)
[2023-04-30 06:22] LABS: Alanine Aminotransfer (ALT/SGP 65 U/L (12-78); Albumin, Blood 2.9 g/dL (3.4-5.0); Alk Phos 66 U/L (50-136); Anion Gap 5 mmol/L (6-16); Aspartate Aminotrans (AST/SGOT 155 U/L (12-37); Bilirubin, Total 2.9 mg/dL (0.1-1.0); Blood Urea Nitrogen 66 mg/dL (8-24); Bun/Creatinine Ratio 16.6 (12.0-20.0); CO2, Blood 23 mmol/L (21-32); Calcium, Blood 8.3 mg/dL (8.5-10.1); Chloride, Blood 108 mmol/L (98-108); Creatinine, Blood 3.97 mg/dL (0.60-1.20); Globulin, Blood 2.8 g/dL (2.2-4.0); Glomerular Filtration Rate 15 (60-); Glucose, Blood 87 mg/dL (70-99); Phosphorus, Blood 3.8 mg/dL (2.5-4.9); Potassium, Blood 4.7 mmol/L (3.5-5.5); Sodium, Blood 136 mmol/L (136-145); Total Protein, Blood 5.7 g/dL (6.4-8.2)
[2023-04-30 07:13] VITALS: BP 93/57
[2023-04-30] MEDS ORDERED: Midodrine 5 MG Tab PO SCH (09:00)
[2023-04-30] MEDS ORDERED: Metoprolol Succinate 50 MG TABCR PO SCH (09:00)
[2023-04-30 13:11] VITALS: BP 106/51
--- NOTE | 2023-04-30 16:49 | NUR ---
Pt. is awake in bed, Dr. Romo is present, and family are at bedside and welcome my visit. After Dr. Romo departed this suction worker asked guided questions to assess feelings about the diagnosis. Pt. displayed evidence of being generally encouraged but frustrated with the time it takes for his health to improve. Other family members arrive, and life story is facilitated. The Pt. and family verbalized gratitude for the spiritual caree visit, and welcomed this suction worker to return.
--- NOTE | 2023-04-30 17:31 | NUR ---
SHIFT SUMMARY PT WALKED IN HALLWAY WITH FWW WITH DAUGHTER THIS AFTERNOON. DID "THE SQUARE LOOP". VERY SOB ON RETURN TO ROOM BUT WAS ABLE TO RECOVER. DIANNA HOSE PLACE FOR INCREASED SWELLING TO LE'S THIS AFTERNOON AFTER HIS SHOWER. SCABS NOTED TO Tyler HASSAN. PT REPORTS HIS SHOE HORN CAUSES SCRATCHES AT TIMES. UP IN CHAIR MOST OF THE DAY. REPORTS HE THINKS HE IS URINATING MORE TODAY.
[2023-04-30] MEDS ORDERED: NS 1,000 ML IV SCH (19:25)
[2023-04-30 19:49] VITALS: BP 108/66
[2023-05-01 03:49] VITALS: BP 103/50
[2023-05-01 05:40] LABS: BASOPHILS ABSOLUTE AUTO 0.02 K/mm3 (0.00-0.23); BASOPHILS PERCENT AUTO 0 % (0-2); EOSINOPHILS ABSOLUTE AUTO 0.18 K/mm3 (0.00-0.68); EOSINOPHILS PERCENT AUTO 2 % (0-6); Hematocrit 32.8 % (37.0-53.0); Hemoglobin 11.2 g/dL (13.5-17.5); IMMATURE GRAN ABSOLUTE AUTO 0.03 K/mm3 (0.00-0.10); IMMATURE GRAN PERCENT AUTO 0 % (0-1); LYMPHOCYTES ABSOLUTE AUTO 1.34 K/mm3 (0.84-5.20); LYMPHOCYTES PERCENT AUTO 16 % (21-46); MONOCYTES ABSOLUTE AUTO 0.89 K/mm3 (0.16-1.47); MONOCYTES PERCENT AUTO 11 % (4-13); Mean Corpuscular HGB 31.7 pg (26.0-34.0); Mean Corpuscular HGB Conc 34.1 g/dL (31.5-36.5); Mean Corpuscular Volume 93 fL (80-100); Mean Platelet Volume 10.4 fL (9.1-12.4); NEUTROPHILS ABSOLUTE AUTO 6.02 K/mm3 (1.96-9.15); NEUTROPHILS PERCENT AUTO 71 % (41-73); Platelet Count 156 K/mm3 (150-400); RDW Coefficient Variation 18.3 % (11.7-14.2); RDW Standard Deviation 62.1 fL (35.1-46.3); Red Blood Cell Count 3.53 M/mm3 (4.30-5.90); White Blood Cell Count 8.48 K/mm3 (4.00-11.30)
[2023-05-01 06:20] LABS: Albumin, Blood 2.9 g/dL (3.4-5.0); Anion Gap 6 mmol/L (6-16); Blood Urea Nitrogen 69 mg/dL (8-24); Bun/Creatinine Ratio 16.8 (12.0-20.0); CO2, Blood 20 mmol/L (21-32); Calcium, Blood 8.2 mg/dL (8.5-10.1); Chloride, Blood 106 mmol/L (98-108); Glomerular Filtration Rate 14 (60-); Glucose, Blood 100 mg/dL (70-99); Phosphorus, Blood 4.1 mg/dL (2.5-4.9); Potassium, Blood 4.8 mmol/L (3.5-5.5); Sodium, Blood 132 mmol/L (136-145)
[2023-05-01 07:12] VITALS: BP 98/44
--- NOTE | 2023-05-01 07:53 | NUR ---
SHIFT SUMMARY PT A&O X4, CALM AND COOPERATIVE WITH CARE. PT IND TO BATHROOM WITH FWW. PT HAS LITTLE URINE OUTPUT AND NOT EATING/DRINKING MUCH. BLADDER SCANNED PT WHICH SHOWED 184 ML. PT HAS SPARKLE LOW EXT EDEMA. PT STATES HE WEWARS COMPRESSION SOCKS AT HOME. DIANNA HOES IN PLACE. PT USING CPAP AT HS TOLERATED WELL. DOES BECOME SOB WITH ACTIVITY. BED KEPT IN LOWEST POSITION WITH CALL LIGHT WITHIN REACH.
[2023-05-01] MEDS ORDERED: Doxycycline Hyclate 100 MG TAB PO SCH (14:00)
[2023-05-01 17:09] VITALS: BP 122/48
--- NOTE | 2023-05-01 18:21 | NUR ---
Pt. is sitting up in a recliner. Family are at bedside, and verbalized they we expecting my visit. Pt. displays evidence of a positive attitude, but less so than previous days. Facilitate an update form Pt. and family. Prayed with Pt. Pt. and family verbalized gratitude for the spiritual care visit.
--- NOTE | 2023-05-01 18:56 | NUR ---
SHIFT SUMMARY PT RESTING QUIETLY ON CPAP AT START OF SHIFT. WOKE EASILY FOR CARE, BUT DID NOT WANT TO EAT BREAKFAST WHEN BROUGHT IN. PER SHIFT REPORT, PT AWAKE MOST OF THE NIGHT UNTIL HOSPICE CASE MANAGER. PT UP TO CHAIR FOR MEALS. MULTIPLE FAMILY IN RM ALL DAY. PT C/O NAUSEA A LITTLE WHILE AFTER VIBRAMYCIN GIVEN, PT HAD NOT EATEN ANY LUNCH. ZOFRAN GIVEN PER EMAR; PT REPORTING IT EFFECT. CRACKERS ALSO GIVEN. PT UP TO BATHRM FOR BM USING FWW AND SBA. CONTINUES TO SIT IN CHAIR AT BS, VISITING AND WATCHING TV. DENIES FURTHER NEEDS AT THIS TIME.
[2023-05-01 19:40] VITALS: BP 118/56
[2023-05-02 03:15] VITALS: BP 121/64
[2023-05-02 04:43] LABS: BASOPHILS ABSOLUTE AUTO 0.02 K/mm3 (0.00-0.23); BASOPHILS PERCENT AUTO 0 % (0-2); EOSINOPHILS PERCENT AUTO 1 % (0-6); Hematocrit 29.3 % (37.0-53.0); IMMATURE GRAN ABSOLUTE AUTO 0.02 K/mm3 (0.00-0.10); IMMATURE GRAN PERCENT AUTO 0 % (0-1); LYMPHOCYTES PERCENT AUTO 14 % (21-46); MONOCYTES ABSOLUTE AUTO 0.93 K/mm3 (0.16-1.47); MONOCYTES PERCENT AUTO 13 % (4-13); Mean Corpuscular HGB 31.4 pg (26.0-34.0); Mean Corpuscular HGB Conc 34.1 g/dL (31.5-36.5); Mean Corpuscular Volume 92 fL (80-100); Mean Platelet Volume 10.2 fL (9.1-12.4); NEUTROPHILS ABSOLUTE AUTO 4.91 K/mm3 (1.96-9.15); NEUTROPHILS PERCENT AUTO 70 % (41-73); Platelet Count 147 K/mm3 (150-400); RDW Coefficient Variation 18.2 % (11.7-14.2); RDW Standard Deviation 60.4 fL (35.1-46.3); Red Blood Cell Count 3.18 M/mm3 (4.30-5.90); White Blood Cell Count 6.98 K/mm3 (4.00-11.30)
--- NOTE | 2023-05-02 06:28 | NUR ---
PATIENT IS ALERT AND ORIENTED. ON ROOM AIR. WITH PIV LINE ON RIGHT HAND PATENT AND INTACT, HOOKED NSS 1L, INFUSING WELL. ON STRICT I&O. WITH COMPRESSION STOCKINGS ON. 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 PLACED CPAP LAST NIGHT. COMPLAINT OF PAIN, MEDICATED ACCORDINGLY. NEEDS ATTENDED. CALL LIGHT WITHIN PATIENT'S REACH. WILL CONTINUE TO MONITOR.
[2023-05-02 07:54] VITALS: BP 116/51
[2023-05-02 08:07] LABS: Albumin, Blood 2.5 g/dL (3.4-5.0); Anion Gap 8 mmol/L (6-16); Blood Urea Nitrogen 68 mg/dL (8-24); Bun/Creatinine Ratio 17.2 (12.0-20.0); CO2, Blood 18 mmol/L (21-32); Calcium, Blood 7.7 mg/dL (8.5-10.1); Chloride, Blood 107 mmol/L (98-108); Creatinine, Blood 3.96 mg/dL (0.60-1.20); Glomerular Filtration Rate 15 (60-); Glucose, Blood 98 mg/dL (70-99); Phosphorus, Blood 4.2 mg/dL (2.5-4.9); Potassium, Blood 4.8 mmol/L (3.5-5.5); Sodium, Blood 133 mmol/L (136-145)
[2023-05-02 13:56] VITALS: BP 126/55
[2023-05-02] MEDS ORDERED: NS 1,000 ML IV SCH (14:15)
--- NOTE | 2023-05-02 16:11 | NUR ---
DAY SHIFT SUMMARY PT A/OX4. NO ACUTE EVENTS. PT IS PLEASANT AND COOPERATIVE WITH CARE. ABLE TO MAKE NEEDS KNOWN. NEW IV PLACED THIS MORNING DUE TO EXISTING IV NO FLUSHING. PT RECV NS FLUIDS AT 100MLS HOUR THEN DROPPED TO 50MLS PER HOUR PER DR COELHO. PT GETTING MEDS PER MAY. MIDODINE GIVEN SCHEDULED; BLOOD PRESSURE CHECKED PRIOR TO AMINISTRATION. APPETITE IS GOOD; MONITORING URINARY OUTPUT. PT DRINKING MORE WATER. PB ABD FIRM AND NON TENDER. SWELLING TO BLE. PT HAS COMPRESSION SOCKS IN PLACE.
[2023-05-02 17:10] VITALS: BP 119/66
[2023-05-02 20:01] VITALS: BP 122/59
[2023-05-03 03:38] VITALS: BP 128/63
--- NOTE | 2023-05-03 04:35 | NUR ---
PATIENT IS ALERT AND ORIENTED. WITH PIV LINE ON LEFT ARM, WITH ONGOING IV FLUIDS INFUSING WELL. WITH BILATERAL COMPRESSION SOCKS ON. ON STRICT I&O MONITORED. PLACED CPAP LAST NIGHT. NEEDS ATTENDED. ON ISOLATION D/T MRSA (NARES). NO COMPLAINT MADE. NEEDS ATTENDED. WILL CONTINUE TO MONITOR.
[2023-05-03 05:07] LABS: BASOPHILS ABSOLUTE AUTO 0.01 K/mm3 (0.00-0.23); BASOPHILS PERCENT AUTO 0 % (0-2); EOSINOPHILS ABSOLUTE AUTO 0.14 K/mm3 (0.00-0.68); EOSINOPHILS PERCENT AUTO 2 % (0-6); Hematocrit 30.9 % (37.0-53.0); Hemoglobin 10.6 g/dL (13.5-17.5); IMMATURE GRAN ABSOLUTE AUTO 0.01 K/mm3 (0.00-0.10); IMMATURE GRAN PERCENT AUTO 0 % (0-1); LYMPHOCYTES PERCENT AUTO 12 % (21-46); MONOCYTES ABSOLUTE AUTO 0.96 K/mm3 (0.16-1.47); MONOCYTES PERCENT AUTO 15 % (4-13); Mean Corpuscular HGB 31.5 pg (26.0-34.0); Mean Corpuscular HGB Conc 34.3 g/dL (31.5-36.5); Mean Corpuscular Volume 92 fL (80-100); NEUTROPHILS ABSOLUTE AUTO 4.59 K/mm3 (1.96-9.15); NEUTROPHILS PERCENT AUTO 70 % (41-73); Platelet Count 154 K/mm3 (150-400); RDW Coefficient Variation 18.4 % (11.7-14.2); RDW Standard Deviation 61.8 fL (35.1-46.3); Red Blood Cell Count 3.36 M/mm3 (4.30-5.90); White Blood Cell Count 6.51 K/mm3 (4.00-11.30)
[2023-05-03 05:46] LABS: Albumin, Blood 2.6 g/dL (3.4-5.0); Albumin/Globulin Ratio 0.9 (0.8-1.8); Bilirubin, Total 2.2 mg/dL (0.1-1.0); Bun/Creatinine Ratio 20.1 (12.0-20.0); Calcium, Blood 8.1 mg/dL (8.5-10.1); Creatinine, Blood 3.48 mg/dL (0.60-1.20); Potassium, Blood 4.7 mmol/L (3.5-5.5); Total Protein, Blood 5.6 g/dL (6.4-8.2)
[2023-05-03 07:28] VITALS: BP 122/62
[2023-05-03] MEDS ORDERED: Midodrine 5 MG Tab PO SCH (09:00)
[2023-05-03 12:15] VITALS: BP 122/72
[2023-05-03 16:30] VITALS: BP 130/70
[2023-05-03] MEDS ORDERED: Polyethylene Glycol 3350 17 gm PO PRN (17:00)
[2023-05-03] MEDS ORDERED: Docusate Sodium 100 MG Cap PO PRN (17:00)
[2023-05-03 17:37] VITALS: BP 115/56
--- NOTE | 2023-05-03 18:43 | NUR ---
SUMMARY- NO CHANGES WITH PT THIS SHIFT. NO ACUTE EVENTS THIS SHIFT. AAOX4. SBA WITH WALKER.
[2023-05-03 19:39] VITALS: BP 112/59
[2023-05-04 03:53] VITALS: BP 109/65
--- NOTE | 2023-05-04 05:04 | NUR ---
SHIFT SUMMARY PT A&OX4 AND ANSWERS QUESTIONS APPROPRIATELY. PT AMBULATED TO BATHROOM INDEPENDENTLY DURING NIGHT. PT USED CPAP DURING NOC AND MAINTAINED O2 SATURATIONS ABOVE 90%. PT SPENT MOST OF SHIFT SLEEPING WITH EYES CLOSED AND RESPIRATIONS EVEN AND UNLABORED. NO ACUTE EVENTS AT THIS TIME. PT LEFT IN A POSITION OF SAFETY WITH PROPER FALL PRECAUTIONS IN PLACE AND CALL LIGHT IN REACH. VSS, NO COMPLAINTS OF SOB OR CP.
[2023-05-04 06:34] LABS: BASOPHILS ABSOLUTE AUTO 0.01 K/mm3 (0.00-0.23); BASOPHILS PERCENT AUTO 0 % (0-2); EOSINOPHILS ABSOLUTE AUTO 0.11 K/mm3 (0.00-0.68); EOSINOPHILS PERCENT AUTO 2 % (0-6); Hematocrit 30.3 % (37.0-53.0); Hemoglobin 10.5 g/dL (13.5-17.5); IMMATURE GRAN ABSOLUTE AUTO 0.04 K/mm3 (0.00-0.10); IMMATURE GRAN PERCENT AUTO 1 % (0-1); LYMPHOCYTES ABSOLUTE AUTO 0.74 K/mm3 (0.84-5.20); LYMPHOCYTES PERCENT AUTO 11 % (21-46); MONOCYTES ABSOLUTE AUTO 1.02 K/mm3 (0.16-1.47); MONOCYTES PERCENT AUTO 15 % (4-13); Mean Corpuscular HGB 31.5 pg (26.0-34.0); Mean Corpuscular HGB Conc 34.7 g/dL (31.5-36.5); Mean Corpuscular Volume 91 fL (80-100); Mean Platelet Volume 10.4 fL (9.1-12.4); NEUTROPHILS ABSOLUTE AUTO 4.95 K/mm3 (1.96-9.15); NEUTROPHILS PERCENT AUTO 72 % (41-73); Platelet Count 151 K/mm3 (150-400); RDW Standard Deviation 60.1 fL (35.1-46.3); Red Blood Cell Count 3.33 M/mm3 (4.30-5.90); White Blood Cell Count 6.87 K/mm3 (4.00-11.30)
[2023-05-04 07:03] LABS: Alanine Aminotransfer (ALT/SGP 24 U/L (12-78); Albumin, Blood 2.5 g/dL (3.4-5.0); Albumin/Globulin Ratio 0.9 (0.8-1.8); Alk Phos 81 U/L (50-136); Anion Gap 5 mmol/L (6-16); Aspartate Aminotrans (AST/SGOT 138 U/L (12-37); Bilirubin, Total 2.5 mg/dL (0.1-1.0); Blood Urea Nitrogen 72 mg/dL (8-24); Bun/Creatinine Ratio 21.9 (12.0-20.0); CO2, Blood 20 mmol/L (21-32); Calcium, Blood 8.2 mg/dL (8.5-10.1); Chloride, Blood 104 mmol/L (98-108); Creatinine, Blood 3.29 mg/dL (0.60-1.20); Globulin, Blood 2.7 g/dL (2.2-4.0); Glomerular Filtration Rate 19 (60-); Glucose, Blood 99 mg/dL (70-99); Potassium, Blood 4.5 mmol/L (3.5-5.5); Sodium, Blood 129 mmol/L (136-145); Total Protein, Blood 5.2 g/dL (6.4-8.2)
[2023-05-04 07:53] VITALS: BP 96/44
[2023-05-04 07:57] VITALS: BP 105/60
--- NOTE | 2023-05-04 09:00 | NUR ---
pt laying in bed awake a/ox4, pleasant and cooperative with care, follows commands well, denies pain, reports he feels better than when he came in but doesn't feel great yet, lungs are clear a bit dimmer in bases, resp even and unlabored, no cough noted, hrirr, distant, 4+ edema noted to b/l trent, has teds in place, cap refill <3 sec, vs stable, afebrile, piv to lhand, site is clear and patent, btx4, abd large soft nontender, voids without diff, skin c/w/d, maew, martin call light in reach.
[2023-05-04] MEDS ORDERED: MIDO5 PO (12:47)
[2023-05-04] MEDS ORDERED: DOXY100 PO (12:47)
[2023-05-04] MEDS ORDERED: LACT PO (12:48)
--- NOTE | 2023-05-04 14:44 | NUR ---
Pt has been discharged to home, iv removed intact, went over instructions with him, and asked if he understood and has any questions, he said his daughter is an RN and will help him, new meds faxed to [facility]. left via wheelchair with family and spray unit feeder in attendence, has all belongings.
== END 2023-05-04 14:33 | disposition home or self-care (01) | DRG 683 ==
LOC: MEDS 17:11 → ENPENDDIS 05-04 12:14 → MEDS 05-04 14:33
PROVIDERS: Hospitalist; Internal Medicine; Internal Medicine Nephrology; ADMIT Family Medicine
PROC: 5A09357 Assistance with Respiratory Ventilation, Less than 24 Consecutive Hours, Continuous Positive Airway Pressure (ICD-10-PCS; principal; 2023-04-28)
DX: N17.9 Acute kidney failure, unspecified (principal); I13.0 Hypertensive heart and chronic kidney disease with heart failure and stage 1 through stage 4 chronic kidney disease, or unspecified chronic kidney disease; I50.32 Chronic diastolic (congestive) heart failure; L03.211 Cellulitis of face; I42.9 Cardiomyopathy, unspecified; K76.6 Portal hypertension; N18.31 Chronic kidney disease, stage 3a; N40.0 Benign prostatic hyperplasia without lower urinary tract symptoms; E66.9 Obesity, unspecified; I25.10 Atherosclerotic heart disease of native coronary artery without angina pectoris; G47.33 Obstructive sleep apnea (adult) (pediatric); I48.0 Paroxysmal atrial fibrillation; K74.60 Unspecified cirrhosis of liver; R19.7 Diarrhea, unspecified; E78.5 Hyperlipidemia, unspecified; K76.0 Fatty (change of) liver, not elsewhere classified; I95.9 Hypotension, unspecified; E11.22 Type 2 diabetes mellitus with diabetic chronic kidney disease; K21.9 Gastro-esophageal reflux disease without esophagitis; I25.2 Old myocardial infarction; Z98.890 Other specified postprocedural states; Z87.891 Personal history of nicotine dependence; Z88.5 Allergy status to narcotic agent; Z79.01 Long term (current) use of anticoagulants; Z79.84 Long term (current) use of oral hypoglycemic drugs; Z79.899 Other long term (current) drug therapy; Z95.5 Presence of coronary angioplasty implant and graft; Z98.49 Cataract extraction status, unspecified eye; Z95.0 Presence of cardiac pacemaker
CPT/HCPCS: 36415; 70486; 71046; 76770; 80053; 80069; 80076; 81003; 82533; 82570; 82947; 83880; 84156; 84300; 84443; 84540; 85025; 87507; 94660; 94760; 94762; 97112; 97161; 97165; 97530; 97535; A9270; G0378; G0379; J0690; J2405; J7030; P9047